=== PATIENT | male | born 1955 | race Caucasian/White ===

== ENCOUNTER 2018-11-22 15:03 | Outpatient (REF) | payer BC, SELFPAY ==
[2018-11-22 21:40] LABS: Hemoglobin A1C 5.8 % (4.5-6.2)
[2018-11-22 22:00] LABS: Calculated LDL 151 mg/dL; Cholesterol 230 mg/dL (50-200); HDL Cholesterol 51 mg/dL (40-60); TSH (W/Ref FT4) 2.21 uIU/mL (0.36-3.74); Triglyceride 141 mg/dL (30-150)
[2018-11-24 11:43] LABS: Lyme Ab w Rflx to Lyme Confirm Negative
[2018-11-25 19:52] LABS: Anaplasma phagocytophilum Negative (Negative); B. miyamotoi PCR Negative (Negative); Babesia divergens/MO-1 Negative (Negative); Babesia duncani Negative (Negative); Babesia microti Negative (Negative); Ehrlichia chaffeensis Negative (Negative); Ehrlichia ewingii/canis Negative (Negative); Ehrlichia muris eauclairensis Negative (Negative)
== END 2018-11-22 15:23 ==
LOC: NCHCN 15:03
PROVIDERS: Visit Provider Nurse Practitioner Family
DX: R53.1 Weakness (principal); R29.810 Facial weakness; R73.09 Other abnormal glucose; E78.5 Hyperlipidemia, unspecified; Z87.891 Personal history of nicotine dependence
CPT/HCPCS: 80061; 83721; 87798; 83036; 84443; 86618

== ENCOUNTER 2021-03-26 11:45 | Outpatient (REF) | payer BC, SELFPAY ==
[2021-03-26 15:06] LABS: ALT 30 U/L (16-63); AST 21 U/L (15-37); Albumin 3.9 g/dL (3.4-5.0); Alkaline Phosphatase 68 U/L (46-116); Anion Gap 8.9 mmol/L (3-11); BUN 22 mg/dL (7-18); Bilirubin, Total 0.3 mg/dL (0.2-1.0); CO2 28.1 mmol/L (21.0-32.0); CREATININE 1.2 mg/dL (0.70-1.30); Calculated LDL 170 mg/dL (<100); Chloride 102 mmol/L (98-107); Cholesterol 250 mg/dL (<200); Glucose 90 mg/dL (74-106); HDL Cholesterol 48 mg/dL (40-60); Potassium 4.6 mmol/L (3.5-5.1); Sodium 139 mmol/L (136-145); Total Protein 7.4 g/dL (6.4-8.2); Triglyceride 161 mg/dL (<150)
== END 2021-03-26 11:46 | disposition home or self-care (01) ==
LOC: NCHCN 11:45
PROVIDERS: Visit Provider Nurse Practitioner Family
DX: E78.5 Hyperlipidemia, unspecified (principal); R73.03 Prediabetes; E66.01 Morbid (severe) obesity due to excess calories
CPT/HCPCS: 80053; 80061; 83036

== ENCOUNTER 2021-07-22 15:28 | Outpatient (REF) | payer BC, SELFPAY ==
[2021-07-22 16:17] LABS: HCT 46.4 % (40.0-50.0); HGB 14.8 g/dL (13.5-17.5); MCH 28.1 pg (27.0-33.0); MCHC 31.9 % (32.0-36.0); MCV 88.2 fL (80-95); MPV 11.4 fL (8.0-11.0); Platelet Count 193 10^3/uL (130-400); RBC 5.26 10^6/uL (4.36-5.78); RDW-SD 45.2 fL; WBC 9.68 10^3/uL (4.4-10.8)
[2021-07-22 16:52] LABS: Hemoglobin A1C 6.3 % (<5.7)
[2021-07-22 17:31] LABS: ALT 28 U/L (16-63); AST 24 U/L (15-37); Alkaline Phosphatase 78 U/L (46-116); Anion Gap 11.4 mmol/L (3-11); BUN 21 mg/dL (7-18); Bilirubin, Total 0.4 mg/dL (0.2-1.0); CO2 26.6 mmol/L (21.0-32.0); CREATININE 1.2 mg/dL (0.70-1.30); Calcium 9.4 mg/dL (8.5-10.1); Calculated LDL 89 mg/dL (<100); Chloride 103 mmol/L (98-107); Cholesterol 158 mg/dL (<200); Glucose 93 mg/dL (74-106); HDL Cholesterol 56 mg/dL (40-60); Potassium 4.5 mmol/L (3.5-5.1); Sodium 141 mmol/L (136-145); Total Protein 7.4 g/dL (6.4-8.2); Triglyceride 65 mg/dL (<150)
== END 2021-07-22 15:29 | disposition home or self-care (01) ==
LOC: NCHCN 15:28
PROVIDERS: Visit Provider Nurse Practitioner Family
DX: Z00.00 Encounter for general adult medical examination without abnormal findings (principal); E78.5 Hyperlipidemia, unspecified; R73.03 Prediabetes; I63.9 Cerebral infarction, unspecified; E66.01 Morbid (severe) obesity due to excess calories
CPT/HCPCS: 80053; 80061; 85027; 83036

== ENCOUNTER 2021-09-23 09:21 | Outpatient (REF) | payer MEDICARE, BC, SELFPAY ==
[2021-09-23 15:08] LABS: ALT 21 U/L (16-63); AST 16 U/L (15-37); Albumin 3.7 g/dL (3.4-5.0); Alkaline Phosphatase 66 U/L (46-116); Bilirubin, Direct 0.2 mg/dL (0.0-0.2); Bilirubin, Total 0.5 mg/dL (0.2-1.0); Calculated LDL 68 mg/dL (<100); Cholesterol 140 mg/dL (<200); HDL Cholesterol 56 mg/dL (40-60); Total Protein 6.9 g/dL (6.4-8.2); Triglyceride 84 mg/dL (<150)
== END 2021-09-23 09:22 | disposition home or self-care (01) ==
LOC: NCHCN 09:21
PROVIDERS: Visit Provider Nurse Practitioner Family
DX: E78.5 Hyperlipidemia, unspecified (principal)
CPT/HCPCS: 80061; 80076

== ENCOUNTER 2022-07-16 08:05 | Outpatient (REF) | payer MEDICARE, SELFPAY ==
[2022-07-16 21:47] LABS: BUN 22 mg/dL (7-18); CREATININE 1.1 mg/dL (0.70-1.30); Calcium 9.3 mg/dL (8.5-10.1); Chloride 104 mmol/L (98-107); Glucose 102 mg/dL (74-106); Potassium 4.8 mmol/L (3.5-5.1); Sodium 139 mmol/L (136-145)
[2022-07-16 21:51] LABS: Hemoglobin A1C 6.2 % (<5.7)
== END 2022-07-16 08:06 | disposition home or self-care (01) ==
LOC: NCHCN 08:05
PROVIDERS: Visit Provider Nurse Practitioner Family
DX: R73.03 Prediabetes (principal); E66.01 Morbid (severe) obesity due to excess calories; Z79.899 Other long term (current) drug therapy; Z51.81 Encounter for therapeutic drug level monitoring
CPT/HCPCS: 80048; 83036

== ENCOUNTER 2023-07-06 12:16 | Outpatient (REF) | payer MEDICARE, SELFPAY ==
[2023-07-06 14:42] LABS: HGB 14.6 g/dL (13.5-17.5); MCH 28.6 pg (27.0-33.0); MCHC 32.4 % (32.0-36.0); MCV 88 fL (80-95); MPV 11.4 fL (8.0-11.0); Platelet Count 156 10^3/uL (130-400); RBC 5.11 10^6/uL (4.36-5.78); RDW 13.8 % (11.8-14.1); RDW-SD 44.5 fL; WBC 9.31 10^3/uL (4.4-10.8)
[2023-07-06 15:27] LABS: ALT 19 U/L (16-63); AST 23 U/L (15-37); Albumin 3.6 g/dL (3.4-5.0); Alkaline Phosphatase 51 U/L (46-116); Anion Gap 4.3 mmol/L (3-11); BUN 17 mg/dL (7-18); Bilirubin, Total 0.4 mg/dL (0.2-1.0); CO2 29.7 mmol/L (21.0-32.0); CREATININE 1.2 mg/dL (0.70-1.30); Calcium 8.9 mg/dL (8.5-10.1); Calculated LDL 56 mg/dL (<100); Chloride 105 mmol/L (98-107); Cholesterol 132 mg/dL (<200); Glucose 96 mg/dL (74-106); HDL Cholesterol 59 mg/dL (40-60); Potassium 4.9 mmol/L (3.5-5.1); Sodium 139 mmol/L (136-145); TSH 2.38 uIU/Ml (0.36-3.74); Total Protein 7.3 g/dL (6.4-8.2); Triglyceride 88 mg/dL (<150)
[2023-07-06 15:47] LABS: Hemoglobin A1C 6.2 % (<5.7)
== END 2023-07-06 12:17 | disposition home or self-care (01) ==
LOC: NCHCN 12:16
PROVIDERS: PCP Nurse Practitioner Family; Visit Provider Nurse Practitioner Family
DX: E78.5 Hyperlipidemia, unspecified (principal)
CPT/HCPCS: 80053; 80061; 85027; 83036; 84443

== ENCOUNTER 2024-01-18 12:21 | Outpatient (REF) | payer MEDICARE, SELFPAY ==
[2024-01-18 14:45] LABS: Abs Immature Grans 0.02 10^3/uL (0.0-0.06); Absolute Basophil Count 0.03 10^3/uL (0.0-0.2); Absolute Eosinophil Count 0.15 10^3/uL (0.0-0.7); Absolute Lymphocyte Count 2.63 10^3/uL (1.2-3.4); Absolute Monocyte Count 0.82 10^3/uL (0.1-0.8); Absolute Neutrophil Count 4.14 10^3/uL (1.2-6.7); Basophils % 0.4 %; Eosinophils % 1.9 %; HCT 47.6 % (40.0-50.0); HGB 15.4 g/dL (13.5-17.5); Immature Grans % 0.3 %; Lymphocytes % 33.8 %; MCH 29.7 pg (27.0-33.0); MCHC 32.4 % (32.0-36.0); MCV 92 fL (80-95); MPV 11.6 fL (8.0-11.0); Monocytes % 10.5 %; Neutrophils % 53.1 %; Platelet Count 173 10^3/uL (130-400); RBC 5.19 10^6/uL (4.36-5.78); RDW-SD 47.5 fL; WBC 7.79 10^3/uL (4.4-10.8)
[2024-01-18 15:08] LABS: ALT 28 U/L (16-63); AST 31 U/L (15-37); Albumin 3.9 g/dL (3.4-5.0); Alkaline Phosphatase 76 U/L (46-116); Anion Gap 7.3 mmol/L (3-11); BUN 16 mg/dL (7-18); Bilirubin, Total 0.56 mg/dL (0.2-1.0); CO2 30.7 mmol/L (21.0-32.0); CREATININE 1.2 mg/dL (0.70-1.30); Calcium 9.8 mg/dL (8.5-10.1); Chloride 101 mmol/L (98-107); Estimated GFR 66.28 (mL/min/1.73m2); Glucose 100 mg/dL (74-106); Potassium 4.8 mmol/L (3.5-5.1); Sodium 139 mmol/L (136-145); TSH 1.75 uIU/Ml (0.36-3.74)
[2024-01-21 22:06] LABS: Anaplasma phagocytophilum Negative (Negative); B. miyamotoi PCR Negative (Negative); Babesia divergens/MO-1 Negative (Negative); Babesia duncani Negative (Negative); Babesia microti Negative (Negative); Ehrlichia chaffeensis Negative (Negative); Ehrlichia ewingii/canis Negative (Negative); Ehrlichia muris eauclairensis Negative (Negative)
== END 2024-01-18 12:22 | disposition home or self-care (01) ==
LOC: NCHCN 12:21
PROVIDERS: PCP Nurse Practitioner Family; Visit Provider Nurse Practitioner Family
DX: R53.83 Other fatigue (principal)
CPT/HCPCS: 80053; 87798; 84443; 85025

== ENCOUNTER 2024-04-06 11:18 | Outpatient (REF) | payer MEDICARE, SELFPAY ==
[2024-04-07 09:37] LABS: Lyme Ab w Rflx to Lyme Confirm Negative (Negative)
== END 2024-04-06 11:19 | disposition home or self-care (01) ==
LOC: NCHCN 11:18
PROVIDERS: PCP Nurse Practitioner Family; Visit Provider Nurse Practitioner Family
DX: R53.83 Other fatigue (principal)
CPT/HCPCS: 86618

== ENCOUNTER 2025-01-05 13:34 | Outpatient (REF) | payer MEDICARE, SELFPAY ==
[2025-01-05 15:10] LABS: HCT 47.9 % (40.0-50.0); HGB 15.4 g/dL (13.5-17.5); MCH 28.7 pg (27.0-33.0); MCHC 32.2 % (32.0-36.0); MCV 89 fL (80-95); MPV 11.4 fL (8.0-11.0); Platelet Count 152 10^3/uL (130-400); RBC 5.37 10^6/uL (4.36-5.78); RDW 14.2 % (11.8-14.1); RDW-SD 46.8 fL; WBC 8.55 10^3/uL (4.4-10.8)
[2025-01-05 15:31] LABS: Hemoglobin A1C 6.1 % (<5.7)
[2025-01-05 16:11] LABS: ALT 25 U/L (16-63); AST 22 U/L (15-37); Albumin 3.6 g/dL (3.4-5.0); Alkaline Phosphatase 79 U/L (46-116); Anion Gap 6.3 mmol/L (3-11); BUN 17 mg/dL (7-18); Bilirubin, Total 0.4 mg/dL (0.2-1.0); CO2 31.7 mmol/L (21.0-32.0); Calcium 9.3 mg/dL (8.5-10.1); Calculated LDL 63 mg/dL (<100); Chloride 102 mmol/L (98-107); Cholesterol 152 mg/dL (<200); Estimated GFR 73.12 (mL/min/1.73m2); Glucose 130 mg/dL (74-106); HDL Cholesterol 49 mg/dL (>or=40); Potassium 5.0 mmol/L (3.5-5.1); Sodium 140 mmol/L (136-145); TSH 1.89 uIU/mL (0.36-3.74); Total Protein 7.5 g/dL (6.4-8.2); Triglyceride 203 mg/dL (<150)
== END 2025-01-05 13:35 | disposition home or self-care (01) ==
LOC: NCHCN 13:34
PROVIDERS: PCP Nurse Practitioner Family; Visit Provider Nurse Practitioner Family
DX: E78.5 Hyperlipidemia, unspecified (principal); R73.03 Prediabetes; Z13.29 Encounter for screening for other suspected endocrine disorder
CPT/HCPCS: 80053; 80061; 85027; 83036; 84443